=== PATIENT | female | born 1970 | race African-American/Black ===

== ENCOUNTER 2016-09-12 00:35 | Emergency (ER) | payer BC, OTHER ==
[~2016-09-12] VITALS: Ht 152.4 cm; Wt 69.0 kg
[2016-09-12] MEDS ORDERED: ACETAMINOPHEN WITH CODEINE 300/30MG TABLET PO ONE (04:30)
[2016-09-12 05:04] VITALS: BP 145/90
== END 2016-09-12 06:07 | disposition home or self-care (01) ==
LOC: ER 01:36
DX: S52.044A Nondisplaced fracture of coronoid process of right ulna, initial encounter for closed fracture (principal); V00.121A Fall from non-in-line roller-skates, initial encounter; Y93.51 Activity, roller skating (inline) and skateboarding; Y92.89 Other specified places as the place of occurrence of the external cause; Z90.710 Acquired absence of both cervix and uterus
CPT/HCPCS: 29125; 73080; 99284